=== PATIENT | male | born 1985 | race American Indian/Alaskan Native ===

== ENCOUNTER 2018-09-12 04:22 | Emergency (ER) | payer BC ==
--- NOTE | 2018-09-12 05:13 | Event Note ---
Date: 09/12/18 33-year-old gentleman presenting with painless right-sided chest palpitations and thumping. Symptoms intermittently for one week. Patient very anxious because his 75-year-old uncle recently passed from a possible heart attack. No pulmonary embolus or DVT risk factors, low risk by well's criteria. Unlikely to be major adverse cardiac event. We will check x-ray of the chest, electrolytes, TSH, CBC. Patient resting comfortably, and in no acute distress. Patient reports working out every day, and appears to be in superb physical conditio buffy. Vital Signs 09/12/18 09/12/18 04:34 05:09 Temperature 97.9 F 97.9 F Pulse Rate 66 63 Respiratory 16 14 Rate Blood Pressure 112/71 Blood Pressure 118/82 [Left] O2 Sat by Pulse 98 98 Oximetry
[2018-09-12 05:40] LABS: Basophils % (Auto) 0.7 % (0.0-1.8); Eosinophils # (Auto) 0.1 K/mm3 (0.0-0.4); Eosinophils % (Auto) 2.9 % (0.0-4.3); Hemoglobin 14.1 gm/dl (11.8-15.2); Lymphocytes % (Auto) 45.3 % (13.4-35.0); Mean Corpuscular HGB Conc 34 % (32-34); Mean Corpuscular Volume 80 fl (84-94); Monocytes # (Auto) 0.5 K/mm3 (0.0-0.8); Monocytes % (Auto) 10.6 % (0.0-7.3); Platelet Count 205 K/mm3 (140-440); Red Blood Count 5.25 M/mm3 (3.65-5.03); Red Cell Distribution Width 13.1 % (13.2-15.2)
--- NOTE | 2018-09-12 05:51 | XRay Report ---
FINAL REPORT PROCEDURE: XR CHEST ROUTINE 2V TECHNIQUE: PA and lateral chest radiographs were obtained. CPT 88548 HISTORY: CHEST THUMPING COMPARISON: No prior studies are available for comparison. FINDINGS: Heart: Normal. Mediastinum/Vessels: Normal. Lungs/Pleural space: Normal. Bony thorax: No acute osseous abnormality. Other: IMPRESSION: Normal examination.
[2018-09-12 05:58] LABS: Alanine Aminotransferase 13 units/L (7-56); Albumin 4.5 g/dL (3.9-5); BUN/Creatinine Ratio 23; Blood Urea Nitrogen 18 mg/dL (9-20); Calcium 9.5 mg/dL (8.4-10.2); Hemolysis Index 10
[2018-09-12 07:01] VITALS: BP 112/53
--- NOTE | 2018-09-12 07:13 | Emergency Department Report ---
ED General Adult HPI - General Chief complaint: Arrhythmia/Palpitations Stated complaint: CHEST PAIN Time Seen by Provider: 09/12/18 06:53 Source: patient Mode of arrival: Ambulatory Limitations: No Limitations - History of Present Illness Initial comments: The patient presents to emergency Department chief complaint of right chest wall thumping. 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 Patient denies any injury or illicit drug use. Patient also denies any [id number]-[id number] herbs under medications. Patient denies having any chest pain is just concerned about thumping in the right side of his chest. Patient denies abdominal pain, shortness breath, headache. 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 Patient also complains of some itching of his lower lids for last 2 weeks. -: Sudden Severity scale (0 -10): 0 Consistency: constant Improves with: none Worsens with: none Associated Symptoms: denies other symptoms Treatments Prior to Arrival: none - Related Data Previous Rx's Medication Instructions Recorded Last Taken Type Cyclobenzaprine HCl [Flexeril 5 MG 5 mg PO BID PRN #10 tab 09/12/18 Unknown Rx TAB] Allergies Allergy/AdvReac Type Severity Reaction Status Date / Time No Known Allergies Allergy Unverified 09/12/18 04:42 ED Review of Systems ROS: Stated complaint: CHEST PAIN Other details as noted in HPI Comment: All other systems reviewed and negative Constitutional: denies: chills, fever Eyes: denies: eye pain, eye discharge, vision change ENT: denies: ear pain, throat pain Respiratory: denies: cough, shortness of breath, wheezing Cardiovascular: denies: chest pain, palpitations Endocrine: no symptoms reported Gastrointestinal: denies: abdominal pain, nausea, diarrhea Genitourinary: denies: urgency, dysuria Musculoskeletal: denies: back pain, joint swelling, arthralgia Skin: denies: rash, lesions Neurological: denies: headache, weakness, paresthesias Psychiatric: denies: anxiety, depression Hematological/Lymphatic: denies: easy bleeding, easy bruising ED Past Medical Hx - Past Medical History Previous Medical History?: No - Surgical History Past Surgical History?: No - Social History Smoking Status: Former Smoker Substance Use Type: None - Medications Home Medications: Home Medications Medication Instructions Recorded Confirmed Last Taken Type Cyclobenzaprine HCl [Flexeril 5 MG 5 mg PO BID PRN #10 tab 09/12/18 Unknown Rx TAB] ED Physical Exam - General Limitations: No Limitations General appearance: alert, in no apparent distress - Head Head exam: Present: atraumatic, normocephalic - Eye Eye exam: Present: normal appearance, PERRL, EOMI - ENT ENT exam: Present: mucous membranes moist - Neck Neck exam: Present: normal inspection - Respiratory Respiratory exam: Present: normal lung sounds bilaterally. Absent: respiratory distress, wheezes, rales - Cardiovascular Cardiovascular Exam: Present: regular rate, normal rhythm. Absent: systolic murmur, diastolic murmur, rubs, gallop - GI/Abdominal GI/Abdominal exam: Present: soft, normal bowel sounds. Absent: distended, tenderness - Rectal Rectal exam: Present: deferred - Extremities Exam Extremities exam: Present: normal inspection - Back Exam Back exam: Present: normal inspection - Neurological Exam Neurological exam: Present: alert, oriented X3, CN II-XII intact. Absent: motor sensory deficit - Psychiatric Psychiatric exam: Present: normal affect, normal mood - Skin Skin exam: Present: warm, dry, intact, normal color. Absent: rash ED Course Vital Signs 09/12/18 09/12/18 09/12/18 04:34 05:09 06:00 Temperature 97.9 F 97.9 F Pulse Rate 66 63 64 Respiratory 16 14 13 Rate Blood Pressure 112/71 114/71 Blood Pressure 118/82 [Left] O2 Sat by Pulse 98 98 Oximetry 09/12/18 07:00 Temperature Pulse Rate 67 Respiratory 11 L Rate Blood Pressure 112/53 Blood Pressure [Left] O2 Sat by Pulse Oximetry ED Medical Decision Making - Lab Data Result diagrams: 09/12/18 05:25 09/12/18 05:25 - Medical Decision Making Discussed with patient and need to follow with his primary care physician Results discussed with patient Critical care attestation.: If time is entered above; I have spent that time in minutes in the direct care of this critically ill patient, excluding procedure time. ED Disposition Clinical Impression: Muscle spasm Disposition: DC-01 TO HOME OR SELFCARE Is pt being admited?: No Does the pt Need Aspirin: No Condition: Stable Instructions: Muscle Spasm (ED) Additional Instructions: return if worse Referrals: MAYANK URBINA MD [Referring] - 3-5 Days KATHARINA CHISHOLM MD [Staff Physician] - 3-5 Days JERROD CANTRELL MD [Staff Physician] - 3-5 Days JUAN CARLOS RODRIGUEZ DO [Staff Physician] - 3-5 Days Forms: Work/School Release Form(ED) Time of Disposition: 07:12
== END 2018-09-12 07:00 | disposition home or self-care (01) ==
LOC: ED 04:22
DX: M62.838 Other muscle spasm (principal); Z87.891 Personal history of nicotine dependence
CPT/HCPCS: 36415; 71046; 80053; 83735; 84443; 85025; 93005; 93010

== ENCOUNTER 2019-05-30 00:38 | Emergency (ER) | payer BC ==
[2019-05-30 00:47] VITALS: BP 134/73
--- NOTE | 2019-05-30 03:29 | Emergency Department Report ---
Abscess Boil HPI - HPI Chief Complaint: Skin/Abscess/Foreign Body Stated Complaint: L ARM LUMP/PAIN/R LEG PAIN Time Seen by Provider: 05/30/19 02:53 History: Yes Pain, Yes Previous History, No Fever, No Purulent Drainage, No Numbness, No Foreign Body, No Insect Bite HPI: pt is as 34 y/o aam who presents for left ac abscess x 2 days hx of same. there is no fever no chills no n/v no rigors. Home Medications: Previous Rx's Medication Instructions Recorded Last Taken Type Cyclobenzaprine HCl [Flexeril 5 MG 5 mg PO BID PRN #10 tab 09/12/18 Unknown Rx TAB] cephALEXin [Keflex] 500 mg PO Q8HR 10 Days #30 cap 05/30/19 Unknown Rx traMADol [Ultram] 50 mg PO Q6HR PRN #12 tablet 05/30/19 Unknown Rx Allergies/Adverse Reactions: Allergies Allergy/AdvReac Type Severity Reaction Status Date / Time No Known Allergies Allergy Unverified 09/12/18 04:42 ED Review of Systems ROS: Stated complaint: L ARM LUMP/PAIN/R LEG PAIN Other details as noted in HPI Constitutional: denies: chills, fever Eyes: denies: eye pain, eye discharge, vision change ENT: denies: ear pain, throat pain Respiratory: denies: cough, shortness of breath, wheezing Cardiovascular: denies: chest pain, palpitations Endocrine: no symptoms reported Gastrointestinal: denies: abdominal pain, nausea, diarrhea Genitourinary: denies: urgency, dysuria Musculoskeletal: denies: back pain, joint swelling, arthralgia Skin: other (abscess left ac ) Neurological: denies: headache, weakness, paresthesias Psychiatric: denies: anxiety, depression Hematological/Lymphatic: denies: easy bleeding, easy bruising ED Past Medical Hx - Past Medical History Previous Medical History?: No - Surgical History Past Surgical History?: No - Social History Smoking Status: Former Smoker - Medications Home Medications: Home Medications Medication Instructions Recorded Confirmed Last Taken Type Cyclobenzaprine HCl [Flexeril 5 MG 5 mg PO BID PRN #10 tab 09/12/18 Unknown Rx TAB] cephALEXin [Keflex] 500 mg PO Q8HR 10 Days #30 cap 05/30/19 Unknown Rx traMADol [Ultram] 50 mg PO Q6HR PRN #12 tablet 05/30/19 Unknown Rx ED Abscess Boil Physical Exam - Exam General: Vital signs noted. No distress. Alert and acting appropriately. Size: 2 cm Exam: Yes Tenderness, Yes Fluctuance, Yes Surrounding Cellulites/Erythema, Yes Normal Neurologic Exam, Yes Normal Circulation, No Lymphangitis, No Crepitation, No Heart Murmur I & D Note - I & D Note I & D Note: left ac abscess 2x3 cm , fluctuant, erythema, pain , no fever , site cleaned wthi betadine solution, anesthesia with 1% lidocaine plain x 2 cc, incision with 11 blade x 1 , moderate purulent output, sterile dressing applied, all bleeding is controlled. pt tolerated procedure with minimal distress. ED Course Vital Signs 05/30/19 00:44 Temperature 98.4 F Pulse Rate 72 Respiratory 22 Rate Blood Pressure 134/73 O2 Sat by Pulse 100 Oximetry Critical care attestation.: If time is entered above; I have spent that time in minutes in the direct care of this critically ill patient, excluding procedure time. ED Medical Decision Making - Medical Decision Making Left A/C abscess, for I&D, see procedure note, all bleeding is controlled , sterile dressing intact, pt tolerated procedure with minimal distress. pt given wound care in structions, pt verbalized agreement and understanding of same. plan dc to home with rx for keflex, ultram, follow up with pcp in 2 days for wound check. ED Disposition Clinical Impression: Abscess of axilla, left Disposition: DC-01 TO HOME OR SELFCARE Is pt being admited?: No Does the pt Need Aspirin: No Condition: Stable Instructions: Abscess (ED) Prescriptions: cephALEXin [Keflex] 500 mg PO Q8HR 10 Days #30 cap traMADol [Ultram] 50 mg PO Q6HR PRN #12 tablet PRN Reason: Pain Referrals: [facility] [Outside] - 3-5 Days Forms: Work/School Release Form(ED) Time of Disposition: 03:37
[2019-05-30] MEDS ORDERED: traMADol 50 MG TAB PO ONE (03:59)
== END 2019-05-30 04:45 | disposition home or self-care (01) ==
LOC: ED 00:38
DX: L02.412 Cutaneous abscess of left axilla (principal); Z87.891 Personal history of nicotine dependence

== ENCOUNTER 2019-10-16 13:38 | Emergency (ER) | payer BC ==
--- NOTE | 2019-10-16 13:47 | Emergency Department Report ---
Blank Doc - Documentation Documentation: 34-year-old male that presents with dizziness. Stated this is a new symptoms. This initial assessment/diagnostic orders/clinical plan/treatment(s) is/are subject to change based on patient's health status, clinical progression and re- assessment by fellow clinical providers in the ED. Further treatment and workup at subsequent clinical providers discretion. Patient/guardians urged not to elope from the ED as their condition may be serious if not clinically assessed and managed. Initial orders include: 1- Patient sent to [facility] for further evaluation and treatment 2- labs 3- orthostatic vitals
[2019-10-16 14:30] LABS: Hematocrit 44.2 % (35.5-45.6); Hemoglobin 14.5 gm/dl (11.8-15.2); Mean Corpuscular HGB Conc 33 % (32-34); Mean Corpuscular Volume 80 fl (84-94); Platelet Count 170 K/mm3 (140-440); Red Blood Count 5.53 M/mm3 (3.65-5.03); Red Cell Distribution Width 13.1 % (13.2-15.2)
[2019-10-16 14:40] LABS: BUN/Creatinine Ratio 17; Blood Urea Nitrogen 17 mg/dL (9-20); Calcium 8.8 mg/dL (8.4-10.2); Hemolysis Index 33
[2019-10-16 15:43] LABS: Total Cells Counted 100
[2019-10-16 15:44] LABS: Large Platelets 1+; Macrocytosis Few; Platelet Estimate Consistent w Auto; Stomatocytes Few
[2019-10-16] MEDS ORDERED: DEXTROSE 50% IN WATER (25GM) 50 ML VIAL IV PRN (16:49)
[2019-10-16] MEDS ORDERED: SODIUM CHLORIDE 0.9% 1000 ML 2,000 ML IV ONE (16:49)
[2019-10-16] MEDS ORDERED: DEXTROSE 50% IN WATER (25GM) 50 ML SYRINGE IV ONE (16:50)
--- NOTE | 2019-10-16 16:51 | Emergency Department Report ---
ED General Adult HPI - General Chief complaint: Dizziness Stated complaint: DIZZY/ Time Seen by Provider: 10/16/19 13:46 Source: patient, RN notes reviewed Mode of arrival: Ambulatory Limitations: No Limitations - History of Present Illness Initial comments: The patient is a 34-year-old gentleman. He is not known to myself previously. He states he is not had any confirmed exposure to the coronavirus. He presents to the ER with a complaint of "my body was shutting down." This happened over the weekend. He reports that he was at work, and felt generally weak, and was drinking lots of Gatorade. He denies physical pain. He denies fever and cough. He denies DVT and pulmonary embolism risk factors. He complains of generalized weakness. In the emergency room, he is not currently having any symptoms, and is presenting mostly for reassurance. On review of systems, at the moment, there is no complaint of headache, neck pain, chest pain, abdominal pain, shortness of breath, cough, fever, urinary symptoms. He is given a tray of food which she ate without difficulty. Improves with: none Worsens with: none Associated Symptoms: denies other symptoms - Related Data Previous Rx's Medication Instructions Recorded Last Taken Type Cyclobenzaprine HCl [Flexeril 5 MG 5 mg PO BID PRN #10 tab 09/12/18 Unknown Rx TAB] cephALEXin [Keflex] 500 mg PO Q8HR 10 Days #30 cap 05/30/19 Unknown Rx traMADoL [Ultram] 50 mg PO Q6HR PRN #12 tablet 05/30/19 Unknown Rx Allergies Allergy/AdvReac Type Severity Reaction Status Date / Time No Known Allergies Allergy Verified 10/16/19 13:40 ED Review of Systems ROS: Stated complaint: DIZZY/ Other details as noted in HPI Comment: All other systems reviewed and negative (In the emergency room, the patient is not experiencing any symptoms) ED Past Medical Hx - Past Medical History Previous Medical History?: No - Surgical History Past Surgical History?: No - Social History Smoking Status: Former Smoker - Medications Home Medications: Home Medications Medication Instructions Recorded Confirmed Last Taken Type Cyclobenzaprine HCl [Flexeril 5 MG 5 mg PO BID PRN #10 tab 09/12/18 Unknown Rx TAB] cephALEXin [Keflex] 500 mg PO Q8HR 10 Days #30 cap 05/30/19 Unknown Rx traMADoL [Ultram] 50 mg PO Q6HR PRN #12 tablet 05/30/19 Unknown Rx ED Physical Exam - General Limitations: No Limitations General appearance: alert, in no apparent distress - Head Head exam: Present: atraumatic, normocephalic - Eye Eye exam: Present: normal appearance, PERRL, EOMI, other (Visual acuity intact to finger counting, color perception, reading at a close distance). Absent: nystagmus - ENT ENT exam: Present: normal exam, normal orophraynx, mucous membranes moist, normal external ear exam - Neck Neck exam: Present: normal inspection, full ROM. Absent: tenderness, meningismus - Respiratory Respiratory exam: Present: normal lung sounds bilaterally. Absent: respiratory distress - Cardiovascular Cardiovascular Exam: Present: regular rate, normal rhythm, normal heart sounds. Absent: bradycardia, tachycardia, irregular rhythm, systolic murmur, diastolic murmur, rubs, gallop - GI/Abdominal GI/Abdominal exam: Present: soft. Absent: distended, tenderness, guarding, rebound, rigid, pulsatile mass - Rectal Rectal exam: Present: deferred - Extremities Exam Extremities exam: Present: normal inspection, full ROM, other (2+ pulses noted in the bilateral upper and lower extremities. There is no palpable cord. negative Homans sign. Muscular compartments are soft. The pelvis is stable.). Absent: pedal edema, calf tenderness - Back Exam Back exam: Present: normal inspection, full ROM. Absent: tenderness, CVA tenderness (R), CVA tenderness (L), paraspinal tenderness, vertebral tenderness - Neurological Exam Neurological exam: Present: alert, oriented X3, normal gait, other (There is no facial droop. The tongue is midline. Extraocular movements are intact bilaterally. There is 5 out of 5 strength in bilateral upper and lower extremities. Sensation is intact to light touch bilateral upper and lower extremities. There is no past-pointing. There is no pronator drift. There is normal [id number]. There is a normal gait.). Absent: motor sensory deficit - Psychiatric Psychiatric exam: Present: anxious - Skin Skin exam: Present: warm, dry, intact, normal color. Absent: rash ED Course Vital Signs 10/16/19 10/16/19 13:44 17:13 Temperature 98.2 F Pulse Rate 69 Respiratory 18 15 Rate Blood Pressure 116/73 O2 Sat by Pulse 99 Oximetry ED Medical Decision Making - Lab Data Result diagrams: 10/16/19 14:05 10/16/19 14:05 Vital Signs 10/16/19 10/16/19 13:44 17:13 Temperature 98.2 F Pulse Rate 69 Respiratory 18 15 Rate Blood Pressure 116/73 O2 Sat by Pulse 99 Oximetry Lab Results 10/16/19 10/16/19 Range/Units 14:05 14:05 WBC 2.3 L (4.5-11.0) K/mm3 RBC 5.53 H (3.65-5.03) M/mm3 Hgb 14.5 (11.8-15.2) gm/dl Hct 44.2 (35.5-45.6) % MCV 80 L (84-94) fl MCH 26 L (28-32) pg MCHC 33 (32-34) % RDW 13.1 L (13.2-15.2) % Plt Count 170 (140-440) K/mm3 Add Manual Diff Complete Total Counted 100 Seg Neuts % (Manual) 46.0 (40.0-70.0) % Band Neutrophils % 0 % Lymphocytes % (Manual) 44.0 H (13.4-35.0) % Reactive Lymphs % (Man) 0 % Monocytes % (Manual) 7.0 (0.0-7.3) % Eosinophils % (Manual) 2.0 (0.0-4.3) % Basophils % (Manual) 1.0 (0.0-1.8) % Metamyelocytes % 0 % Myelocytes % 0 % Promyelocytes % 0 % Blast Cells % 0 % Nucleated RBC % Not Reportable Seg Neutrophils # Man 1.1 L (1.8-7.7) K/mm3 Band Neutrophils # 0.0 K/mm3 Lymphocytes # (Manual) 1.0 L (1.2-5.4) K/mm3 Abs React Lymphs (Man) 0.0 K/mm3 Monocytes # (Manual) 0.2 (0.0-0.8) K/mm3 Eosinophils # (Manual) 0.0 (0.0-0.4) K/mm3 Basophils # (Manual) 0.0 (0.0-0.1) K/mm3 Metamyelocytes # 0.0 K/mm3 Myelocytes # 0.0 K/mm3 Promyelocytes # 0.0 K/mm3 Blast Cells # 0.0 K/mm3 WBC Morphology Not Reportable Hypersegmented Neuts Not Reportable Hyposegmented Neuts Not Reportable Hypogranular Neuts Not Reportable Smudge Cells Not Reportable Toxic Granulation Not Reportable Toxic Vacuolation Not Reportable Dohle Bodies Not Reportable Pelger-Huet Anomaly Not Reportable Radha Rods Not Reportable Platelet Estimate Consistent w auto Clumped Platelets Not Reportable Plt Clumps, EDTA Not Reportable Large Platelets 1+ Giant Platelets Not Reportable Platelet Satelliting Not Reportable Plt Morphology Comment Not Reportable RBC Morphology Not Reportable Dimorphic RBCs Not Reportable Polychromasia Not Reportable Hypochromasia Not Reportable Poikilocytosis Not Reportable Anisocytosis Not Reportable Microcytosis Not Reportable Macrocytosis Few Spherocytes Not Reportable Pappenheimer Bodies Not Reportable Sickle Cells Not Reportable Target Cells Not Reportable Tear Drop Cells Not Reportable Ovalocytes Not Reportable Stomatocytes Few Helmet Cells Not Reportable [place] Bodies Not Reportable [place] Rings Not Reportable [place] Cells Not Reportable Bite Cells Not Reportable Crenated Cell Not Reportable Elliptocytes Not Reportable Acanthocytes (Spur) Not Reportable Rouleaux Not Reportable Hemoglobin C Crystals Not Reportable Schistocytes Not Reportable Malaria parasites Not Reportable Benigno Bodies Not Reportable Hem Pathologist Commnt No Sodium 139 (137-145) mmol/L Potassium 4.4 (3.6-5.0) mmol/L Chloride 98.9 (98-107) mmol/L Carbon Dioxide 25 (22-30) mmol/L Anion Gap 20 mmol/L BUN 17 (9-20) mg/dL Creatinine 1.0 (0.8-1.5) mg/dL Estimated GFR > 60 ml/min BUN/Creatinine Ratio 17 % Glucose 69 L (75-100) mg/dL Calcium 8.8 (8.4-10.2) mg/dL - EKG Data -: EKG Interpreted by Me Rate: bradycardia - EKG Data 10/16/19 17:57 Sinus rhythm, bradycardia, 57 bpm, left axis deviation, left anterior fascicular block, QTC within normal limits, early repolarization, the EKG is not a STEMI - Medical Decision Making Differential diagnosis, including but not limited to: Reassurance, general medical evaluation Assessment and plan: 34-year-old gentleman, who at the moment does not have any symptoms, presenting mostly for reassurance. He is afebrile with reassuring vital signs, clinically sober, GCS of 15, NIH score of 0, walks with a steady gait, is not currently tachycardic, tachypneic or hypoxic, does not endorse any DVT or pulmonary embolism risk factors, and is low risk by Wells criteria, and is also perc negative his physical exam is benign, and unremarkable, and within normal limits. Laboratory studies were sent prior to my personal evaluation, Demonstrated nonspecific leukopenia, and also showed minimal hypoglycemia. Patient can follow-up with an outpatient primary care doctor for mild leukopenia. He can follow-up with an outpatient landfill gas collection operator or primary care doctor for his incidental nonspecific abnormal EKG. He states that he only eats once a day, and he is encouraged to eat multiple small meals per day. Accu- Chek improved after being fed in the emergency room. Patient observed in this department for hours without clinical decompensation. At the moment, he does not appear to have an emergent medical condition present. Critical care attestation.: If time is entered above; I have spent that time in minutes in the direct care of this critically ill patient, excluding procedure time. ED Disposition Clinical Impression: General medical exam Disposition: DC-01 TO HOME OR SELFCARE Is pt being admited?: No Does the pt Need Aspirin: No Condition: Stable Additional Instructions: Drink 4 to 6 cups of water per day. Please eat at least 3-5 small meals per 24 hours. Get at least 8 hours of sleep per 24 hours. Make certain to wash hands very thoroughly with soap and water before handling food, eating, and after coughing, sneezing. Do not use your hands to touch your eyes, face, or mouth. Follow-up with your primary care doctor within the next 2 to 4 weeks. Please return to the emergency room right away with new, worsened or different symptoms, or symptoms not present on the initial emergency room evaluation. Patient was found to have incidental nonemergent abnormalities, which are noneme rgent, and should be followed up by a primary care doctor. These include nonspecific decrease in white blood cell count, and nonspecific abnormal EKG. Please have your primary care doctor contact the medical records department to obtain these results to further follow-up as an outpatient. Referrals: OMAYRA DAVIS MD [Staff Physician] - as needed [facility] [Provider Group] - as needed [facility] [Provider Group] - as needed
[2019-10-16 18:31] VITALS: BP 118/68
== END 2019-10-16 18:38 | disposition home or self-care (01) ==
LOC: ED 13:38
DX: R53.1 Weakness (principal); Z87.891 Personal history of nicotine dependence
CPT/HCPCS: 36415; 80048; 82962; 85007; 85025; 93005; 93010; 99284; J7030

== ENCOUNTER 2020-01-29 01:55 | Emergency (ER) | payer BC ==
[2020-01-29 02:09] VITALS: BP 120/79
[2020-01-29] MEDS ORDERED: LIDOCAINE-MPF (1%) 10 MG/1 ML VIAL 5 ML INFILTRATI ONE (04:22)
[2020-01-29] MEDS ORDERED: AMOXICILLIN/K CLAV 875/125MG TAB PO ONE (04:22)
[2020-01-29] MEDS ORDERED: IBUPROFEN 600 MG TAB PO ONE (04:22)
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
== END 2020-01-29 06:25 | disposition home or self-care (01) ==
LOC: ED 01:55
DX: S01.311A Laceration without foreign body of right ear, initial encounter (principal); S01.85XA Open bite of other part of head, initial encounter; Z79.1 Long term (current) use of non-steroidal anti-inflammatories (NSAID); Z79.2 Long term (current) use of antibiotics; Z87.891 Personal history of nicotine dependence; Z79.899 Other long term (current) drug therapy; Y04.1XXA Assault by human bite, initial encounter; Y93.89 Activity, other specified; Y92.89 Other specified places as the place of occurrence of the external cause; Y99.8 Other external cause status
CPT/HCPCS: 99282